=== PATIENT | female | born 1975 | race Hispanic/Latino ===

== ENCOUNTER 2016-10-26 11:11 | Emergency (ER) | payer OTHER ==
[2016-10-26 11:17] VITALS: BMI 40.8
[2016-10-26] MEDS ORDERED: Sodium Chloride 0.9% 1,000 ML IV STA (11:39)
[2016-10-26] MEDS ORDERED: Iohexol 240 (50 ml) ONE (11:46)
--- NOTE | 2016-10-26 11:50 | ED PDOC ---
Arrival/HPI - General Chief Complaint: GI Problem Time Seen by Provider: 10/26/16 11:27 Historian: Patient - History of Present Illness Narrative History of Present Illness (Text): 10/26/16 11:40 41 y.o. female whose PMHx includes cholecystectomy, vertigo, and anxiety who says she was at the gym two days ago on the treadmill when she began to feel dizziness and nausea with a cold sweat. She got off the treadmill but her symptoms got worse, and she says she collapsed but did not pass out - she denies falling or hitting her head. She says later that night, she found her BP to be low about 86/66 and developed later a lot of nausea/vomiting with fever > 103. She has since had L side abd pain with nausea; she reports resolution of the fever. She has had some loose stools. She saw her PMD, Dr. Louis, who told her to come to the ED for further eval. She denies any chest pain or palpitations, urinary symptoms, headache, or focal weakness. Past Medical History - Cardiac Hx Cardiac Disorders: No - Pulmonary Hx Respiratory Disorders: No - Neurological Hx Neurological Disorder: Yes Hx Dizziness: Yes (vertigo) - HEENT Hx HEENT Disorder: No - Renal Hx Renal Disorder: No - Endocrine/Metabolic Hx Endocrine Disorders: No - Hematological/Oncological Hx Blood Disorders: No Hx Blood Transfusions: No - Integumentary Hx Dermatological Disorder: No - Musculoskeletal/Rheumatological Hx Musculoskeletal Disorders: Yes (rheumatoid arthritis, fibromyalgia) - Gastrointestinal Hx Gastrointestinal Disorders: No - Genitourinary/Gynecological Hx Genitourinary Disorders: No - Psychiatric Hx Psychophysiologic Disorder: Yes Hx Anxiety: Yes Hx Depression: Yes Hx Substance Use: No - Past Surgical History Past Surgical History: No Previous - Surgical History Hx Cholecystectomy: Yes - Anesthesia Hx Malignant Hyperthermia: No - Suicidal Assessment Feels Threatened In Home Enviroment: No Family/Social History Family/Social History: No Known Family HX Smoking Status: Former Smoker Hx Alcohol Use: Yes Frequency of alcohol use: Socially Hx Substance Use: No Allergies/Home Meds Allergies/Adverse Reactions: Allergies No Known Allergies Allergy (Verified 10/26/16 11:17) Home Medications: Home Meds Medication Instructions Recorded Confirmed ALPRAZolam [Xanax] 1 mg PO PRN PRN 09/10/14 09/07/16 Meclizine [Meclizine*] 12.5 mg PO PRN PRN 06/28/16 09/07/16 Review of Systems - Review of Systems Constitutional: Fevers Eyes: absent: Vision Changes ENT: Normal Respiratory: absent: SOB Cardiovascular: Palpitations (occasional), Syncope. absent: Chest Pain Gastrointestinal: Abdominal Pain, Nausea, Vomiting Genitourinary Female: absent: Dysuria Musculoskeletal: Normal Skin: Normal Neurological: Dizziness. absent: Headache, Focal Weakness, Speech Changes Endocrine: Normal Hemo/Lymphatic: Normal Psychiatric: Normal Physical Exam Vital Signs Temp Pulse Resp BP Pulse Ox 10/26/16 13:09 62 16 141/82 98 10/26/16 11:19 97.6 F 71 17 116/58 L 98 Temperature: Afebrile Blood Pressure: Normal Pulse: Regular Respiratory Rate: Normal Appearance: Positive for: Well-Appearing, Non-Toxic, Comfortable Pain Distress: None Mental Status: Positive for: Alert and Oriented X 3 - Systems Exam Head: Present: Atraumatic, Normocephalic Pupils: Present: PERRL Extroacular Muscles: Present: EOMI Conjunctiva: Present: Normal Mouth: Present: Moist Mucous Membranes Pharnyx: Present: Normal. No: ERYTHEMA Neck: Present: Normal Range of Motion Respiratory/Chest: Present: Clear to Auscultation, Good Air Exchange. No: Respiratory Distress, Accessory Muscle Use Cardiovascular: Present: Regular Rate and Rhythm, Normal S1, S2. No: Murmurs Abdomen: Present: Tenderness (mild ttp in the LLQ), Normal Bowel Sounds. No: Distention, Peritoneal Signs Back: Present: Normal Inspection Upper Extremity: Present: Normal Inspection. No: Cyanosis, Edema Lower Extremity: Present: Normal Inspection. No: Edema Neurological: Present: GCS=15, CN II-XII Intact, Speech Normal, Motor Func Grossly Intact, Gait Normal Skin: Present: Warm, Dry, Normal Color. No: Rashes Psychiatric: Present: Alert, Oriented x 3, Normal Insight, Normal Concentration Medical Decision Making ED Course and Treatment: Patient with noted history presenting with abd pain. Differential: Colitis vs UTI vs dehydration vs IBS 10/26/16 14:05 Abdomen/Pelvis CT: Creator : Lawson Alberts MD COMPARISON: 09/10/2014 FINDINGS: LOWER THORAX: Unremarkable. LIVER: Unremarkable. No gross lesion or ductal dilatation. GALLBLADDER AND BILE DUCTS: Gallbladder removed PANCREAS: Unremarkable. No gross lesion or ductal dilatation. SPLEEN: Unremarkable. ADRENALS: Unremarkable. No mass. KIDNEYS AND URETERS: Unremarkable. No hydronephrosis. No solid mass. VASCULATURE: Unremarkable. No aortic aneurysm. BOWEL: There is lack of distension in the descending colon with some mural thickening. This is similar to the previous study. It is unlikely that this represents colitis. Clinical correlation is suggested APPENDIX: Normal appendix. PERITONEUM: Unremarkable. No free fluid. No free air. LYMPH NODES: Unremarkable. No enlarged lymph nodes. BLADDER: Unremarkable. REPRODUCTIVE: Bilateral ovarian cysts. No evidence of fluid in the cul-de-sac BONES: No acute fracture. OTHER FINDINGS: None. IMPRESSION: No acute intra-abdominal findings. 10/26/16 14:25 EKG is normal. Patient's labs are unremarkable. CT results are noted with no acute findings. Colonic thickening that was present was similar to previous study. Case discussed with Dr. Louis, who recommended starting the patient on abx - will give dose of rocephin and flagyl here and d/c on cipro and flagyl. Patient is feeling better here in the ED. No indication for admission - will d/c - she says she has an appointment with Dr. Louis tomorrow. - Lab Interpretations Lab Results: 10/26/16 11:55 10/26/16 11:55 Lab Results 10/26/16 12:00: pO2 170 H, VBG pH 7.42, VBG pCO2 40.0, VBG HCO3 25.9, VBG Total CO2 27.1, VBG O2 Sat (Calc) 100.1 H, VBG Base Excess 1.3, VBG Potassium 3.8, Sodium 139.0, Chloride 107.0, Glucose 101, Lactate 0.8, FiO2 21.0, Venous Blood Potassium 3.8 10/26/16 11:55: WBC 6.2 D, RBC 4.80, Hgb 14.9, Hct 43.3, MCV 90.2, MCH 31.0, MCHC 34.4, RDW 13.1, Plt Count 207, MPV 11.2 H, Gran % 69.1 H, Lymph % (Auto) 22.3, [place] % (Auto) 6.6 H, Eos % (Auto) 1.8, Baso % (Auto) 0.2, Gran # 4.32, Lymph # 1.4, [place] # 0.4, Eos # 0.1, Baso # 0.01, PT 10.6, INR 0.98, APTT 26.5, Sodium 140, Chloride 104, Potassium 3.9, Carbon Dioxide 26, Anion Gap 14, BUN 14 , Creatinine 0.8, Est GFR ( Amer) > 60, Est GFR (Non-Af Amer) > 60, Random Glucose 101, Calcium 9.1, Total Bilirubin 0.5, AST 28, ALT 20, Alkaline Phosphatase 70, Lactate Dehydrogenase 408, Total Creatine Kinase 27 L, Troponin I < 0.01, Total Protein 7.3, Albumin 4.0, Globulin 3.4, Albumin/Globulin Ratio 1.2, Amylase 72, Lipase 38 10/26/16 11:45: Urine Color Yellow, Urine Appearance Clear, Urine pH 6.0, Ur Specific [place] >= 1.030, Urine Protein Trace H, Urine Glucose (UA) Negative, Urine Ketones Negative, Urine Blood Moderate H, Urine Nitrate Negative, Urine Bilirubin Negative, Urine Urobilinogen 0.2, Ur Leukocyte Esterase Negative, Urine RBC 0 - 2, Urine WBC 0 - 2, Ur Epithelial Cells 10 - 12, Urine Bacteria Few I have reviewed the lab results: Yes - RAD Interpretation Radiology Orders: 10/26/16 11:37 ABD PELVIS PO & IV CONTRAST [CT] Stat - EKG Interpretation EKG Interpretation (Text): 10/26/16 12:33 NSR @ 65; no ST/T changes; normal intervals; normal axis. Interpreted by ED Physician: Yes Type: 12 lead EKG - Medication Orders Current Medication Orders: Ciprofloxacin (Cipro) 500 mg PO ONCE STA PRN Reason: Protocol Stop: 10/26/16 14:24 Discontinued Medications Famotidine (Pepcid) 20 mg IVP STAT STA Stop: 10/26/16 11:38 Last Admin: 10/26/16 12:13 Dose: 20 MG IVP Administration Document 10/26/16 12:13 SS (Rec: 10/26/16 12:13 SS [facility] [id number]) Charges for Administration # of IVP Administrations 1 Sodium Chloride (Sodium Chloride 0.9%) 1,000 mls @ 999 mls/hr IV .Q1H1M STA Stop: 10/26/16 12:39 Last Admin: 10/26/16 12:13 Dose: 999 MLS/HR eMAR Start Stop Document 10/26/16 12:13 SS (Rec: 10/26/16 12:16 SS [id number]) Intravenous Solution Start Date 10/26/16 Start Time 12:15 End Date 10/26/16 End time 13:15 Total Infusion Time 60 Iohexol (Omnipaque 240 (50 Ml)) Confirm Administered Dose 50 ml .ROUTE .STK-MED ONE Stop: 10/26/16 11:47 Iohexol (Omnipaque 350 100 Ml) Confirm Administered Dose 350 mg .ROUTE .STK-MED ONE Stop: 10/26/16 13:12 Ondansetron HCl (Zofran Inj) 4 mg IVP STAT STA Stop: 10/26/16 11:38 Last Admin: 10/26/16 12:12 Dose: 4 MG IVP Administration Document 10/26/16 12:12 SS (Rec: 10/26/16 12:13 SS [id number]) Charges for Administration # of IVP Administrations 1 Disposition/Present on Arrival - Present on Arrival Any Indicators Present on Arrival: No History of DVT/PE: No History of Uncontrolled Diabetes: No Urinary Catheter: No History of Decub. Ulcer: No History Surgical Site Infection Following: None - Disposition Have Diagnosis and Disposition been Completed?: Yes Diagnosis: Abdominal pain, Near syncope Disposition: HOME/ ROUTINE Disposition Time: 14:30 Patient Plan: Discharge Patient Problems: Current Active Problems Problem Status Diagnosed Abdominal pain Acute Cholelithiasis Acute Condition: GOOD Discharge Instructions (ExitCare): Colitis (ED) Additional Instructions: Take the antibiotics as prescribed. Follow up with Dr. Louis tomorrow as scheduled. Recommend GI consult. Drink plenty of fluids. Return to the emergency department if any new concerning symptoms. Prescriptions: Ciprofloxacin [Cipro] 1 tab PO BID #20 tab metroNIDAZOLE [Flagyl] 1 tab PO TID #30 tab Ondansetron ODT [Zofran ODT] 1 tab PO Q8H PRN #10 odt PRN Reason: Nausea/Vomiting
[2016-10-26 11:53] LABS: URINE BILIRUBIN NEGATIVE (NEGATIVE); URINE BLOOD MODERATE (NEGATIVE); URINE GLUCOSE (UA) NEGATIVE (NEGATIVE); URINE KETONE NEGATIVE (NEGATIVE); URINE LEUKOCYTE ESTERASE NEGATIVE Leu/uL (NEGATIVE); URINE PROTEIN TRACE mg/dL (<30 mg/dL); URINE UROBILINOGEN 0.2 E.U./dL (<1 E.U./dL)
[2016-10-26 11:54] LABS: URINE APPEARANCE CLEAR (CLEAR); URINE COLOR YELLOW (YELLOW)
[2016-10-26 11:59] LABS: URINE RBC 0 - 2 /hpf (0-2); URINE WBC 0 - 2 /hpf (0-6)
[2016-10-26 12:00] LABS: URINE BACTERIA FEW (NEG)
[2016-10-26 12:04] LABS: ADD MANUAL DIFF? NO
[2016-10-26 12:08] LABS: BASO # 0.01 K/mm3 (0.0-2.0); BASO % 0.2 % (0.0-3.0); EOS # 0.1 (0.0-0.7); EOS % 1.8 % (1.5-5.0); GRAN # 4.32 (1.4-6.5); GRAN % 69.1 % (50.0-68.0); HEMATOCRIT 43.3 % (36.0-48.0); LYMPH # 1.4 (1.2-3.4); LYMPH % 22.3 % (22.0-35.0); MEAN CELL VOLUME 90.2 fL (80.0-105.0); MEAN CORPUSCULAR HGB CONC 34.4 g/dl (31.0-37.0); MEAN PLATELET VOLUME 11.2 fl (7.0-11.0); MONO # 0.4 (0.1-0.6); MONO % 6.6 % (1.0-6.0); PLATELET COUNT 207 10^3/uL (120.0-450.0); RED CELL DISTRIBUTION WIDTH 13.1 % (11.5-14.5); WHITE BLOOD COUNT 6.2 10^3/ul (4.5-11.0)
[2016-10-26 12:15] LABS: VENOUS BLOOD GAS BASE EXCESS 1.3 mmol/L (0.0-2.0); VENOUS BLOOD PH 7.42 (7.32-7.43)
[2016-10-26 12:19] LABS: ALB/GLOB RATIO 1.2 (1.1-1.8); ALKALINE PHOSPHATASE 70 U/L (38-133); ALT/SGPT 20 U/L (7-56); AMYLASE 72 U/L (35-125); AST/SGOT 28 U/L (15-39); BILIRUBIN,TOTAL 0.5 mg/dL (0.2-1.3); BLOOD UREA NITROGEN 14 mg/dL (7-21); CALCIUM 9.1 mg/dL (8.4-10.5); CARBON DIOXIDE 26 mmol/L (21-33); CHLORIDE 104 mmol/L (98-107); GFR AFRICAN-AMERICAN > 60; GLUCOSE,RANDOM 101 mg/dL (70-110); LIPASE 38 U/L (23-300); POTASSIUM 3.9 mmol/L (3.6-5.0); SODIUM 140 mmol/L (132-148); TOTAL PROTEIN 7.3 g/dL (5.8-8.3)
[2016-10-26 12:21] LABS: INR 0.98 (0.93-1.08); PARTIAL THROMBOPLASTIN TIME 26.5 Seconds (23.7-30.8)
[2016-10-26 12:34] LABS: TROPONIN I < 0.01 ng/mL
[2016-10-26] MEDS ORDERED: Iohexol 350 MG/100 ML VIAL ONE (13:11)
--- NOTE | 2016-10-26 14:05 | CT ---
PROCEDURE: CT Abdomen and Pelvis with contrast HISTORY: LLQ abd pain, nausea COMPARISON: 09/10/2014 TECHNIQUE: Contrast dose: 100 cc of Omni 350 Radiation dose: Total exam DLP = 1190 mGy-cm. FINDINGS: LOWER THORAX: Unremarkable. LIVER: Unremarkable. No gross lesion or ductal dilatation. GALLBLADDER AND BILE DUCTS: Gallbladder removed PANCREAS: Unremarkable. No gross lesion or ductal dilatation. SPLEEN: Unremarkable. ADRENALS: Unremarkable. No mass. KIDNEYS AND URETERS: Unremarkable. No hydronephrosis. No solid mass. VASCULATURE: Unremarkable. No aortic aneurysm. BOWEL: There is lack of distension in the descending colon with some mural thickening. This is similar to the previous study. It is unlikely that this represents colitis. Clinical correlation is suggested APPENDIX: Normal appendix. PERITONEUM: Unremarkable. No free fluid. No free air. LYMPH NODES: Unremarkable. No enlarged lymph nodes. BLADDER: Unremarkable. REPRODUCTIVE: Bilateral ovarian cysts. No evidence of fluid in the cul-de-sac BONES: No acute fracture. OTHER FINDINGS: None. IMPRESSION: No acute intra-abdominal findings.
[2016-10-26] MEDS ORDERED: metroNIDAZOLE IV 500 mg/100 ml 100 ML IVPB STA (14:24)
[2016-10-26] MEDS ORDERED: cefTRIAXone 1 gm 100 ML IV STA (14:29)
[2016-10-26 17:29] VITALS: BP 123/72; PULSE 62; RESP 16; TEMP 97.9; O2SAT 98
--- NOTE | 2016-10-27 09:40 | CARD ---
APPROVED REPORT EKG Measurement Heart [id number] <Conclusion> Normal sinus rhythm Normal ECG
== END 2016-10-26 17:46 | disposition home or self-care (01) ==
LOC: ED 11:11
DX: R55 Syncope and collapse (principal); R10.9 Unspecified abdominal pain; F41.9 Anxiety disorder, unspecified
CPT/HCPCS: 74177; 80053; 81001; 82150; 82550; 82803; 83615; 83690; 84484; 85025; 85610; 85730; 93005; 96361; 96365; 96367; 96375; 99285; J0696; J2405; J7040; Q9966; Q9967